=== PATIENT | female | born 1950 | race Caucasian/White ===

== ENCOUNTER 2016-12-27 00:43 | Emergency (ER) | payer OTHER ==
[2016-12-27 01:02] VITALS: BP 145/67; PULSE 75; TEMP 97.9; BMI 30.4
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
[2016-12-27] MEDS ORDERED: ASPIRIN 81 MG CHEWABLE TABLETS PO ONE (01:12)
[2016-12-27] MEDS ORDERED: PANTOPRAZOLE SODIUM 40 MG in SODIUM CHLORIDE 100 ML IVPB ONE (01:12)
[2016-12-27 01:29] LABS: BASOPHIL 0.4 % (0-2.0); EOSINOPHIL 0.4 % (0-4.5); MCH 27.9 pg (25.7-33.7); MCHC 32.4 g/dl (32.0-36.0); MEAN CELL VOLUME 86.2 fl (80-96); MEAN PLT VOLUME 7.8 fl (7.5-11.1); PLATELET COUNT 235 K/MM3 (134-434); RDW 14.4 % (11.6-15.6); WHITE BLOOD COUNT 7.5 K/mm3 (4.0-10.0)
[2016-12-27] MEDS ORDERED: PANTOPRAZOLE SODIUM 100 ML IVPB ONE (01:44)
[2016-12-27] MEDS ORDERED: ASPIRIN 81 MG CHEWABLE TABLETS ONE (01:44)
[2016-12-27 01:45] LABS: INR 1.16 (0.82-1.09); PROTHROMBIN TIME (PATIENT) 12.8 SEC (9.98-11.88)
[2016-12-27 01:50] LABS: ALBUMIN 3.6 g/dl (3.4-5.0); ANION GAP 9 (8-16); BILIRUBIN,TOTAL 0.6 mg/dL (0.2-1.0); CALCIUM 8.7 mg/dL (8.5-10.1); CO2 29 mmol/L (21-32); COCKROFT - GAULT 109.8795; CREATININE 0.7 mg/dL (0.55-1.02); GLUCOSE,RANDOM 115 mg/dL (74-106); MAGNESIUM 2.2 mg/dL (1.8-2.4); SGOT/AST 16 U/L (15-37); SGPT/ALT 24 U/L (12-78); TOT PROT 6.9 g/dl (6.4-8.2)
[2016-12-27 01:53] LABS: ALK PHOS 77 U/L (45-117); TROPONIN I < 0.02 ng/ml (0.00-0.05)
[2016-12-27] MEDS ORDERED: OXYCODONE/APAP 5/325MG COMBO TABLET PO ONE (02:49)
[2016-12-27] MEDS ORDERED: OXYCODONE/APAP 5/325MG COMBO TABLET ONE (03:20)
--- NOTE | 2016-12-27 12:47 | EKG ---
Test Reason : Blood Pressure : / mmHG Vent. Rate : 072 BPM Atrial Rate : 072 BPM P-R Int : 122 ms QRS Dur : 086 ms QT Int : 386 ms P-R-T Axes : 013 044 028 degrees QTc Int : 422 ms NORMAL SINUS RHYTHM NONSPECIFIC ST ABNORMALITY ABNORMAL ECG NO PREVIOUS ECGS AVAILABLE Confirmed by CRISTELA DUNCAN, HE ([id number]) on 12/27/2016 12:47:32 PM Referred By: Confirmed By:HE ARCHIBALD MD
== END 2016-12-27 03:45 | disposition home or self-care (01) ==
LOC: JER 00:43
PROC: 3E033GC Introduction of Other Therapeutic Substance into Peripheral Vein, Percutaneous Approach (ICD-10-PCS; principal; 2016-12-27)
DX: K80.20 Calculus of gallbladder without cholecystitis without obstruction (principal); I10 Essential (primary) hypertension
CPT/HCPCS: 36415; 71010-TC; 76705-TC; 80053; 82550; 83690; 83735; 83880; 84484; 85025; 85379; 85610; 85730; 86850; 86900; 86901; 93005; 93010; 99283-25

== ENCOUNTER 2022-11-29 08:01 | Day surgery (SDC) | payer OTHER ==
[2022-11-23 12:50] VITALS: BMI 30.4
[2022-11-29] MEDS ORDERED: PROPOFOL 120 ML ONE (08:05)
[2022-11-29] MEDS ORDERED: LIDOCAINE HCL/PF 2% SDV 5ML VIAL ONE (08:05)
[2022-11-29 10:03] VITALS: RESP 18; TEMP 98
[2022-11-29 10:05] VITALS: BP 124/74; PULSE 72
== END 2022-11-29 10:11 | disposition home or self-care (01) ==
LOC: FASU-ENDO 08:01
PROVIDERS: ATTEND Internal Medicine Gastroenterology
PROC: 0DBN8ZX Excision of Sigmoid Colon, Via Natural or Artificial Opening Endoscopic, Diagnostic (ICD-10-PCS; principal; 2022-11-29 09:22)
DX: Z12.11 Encounter for screening for malignant neoplasm of colon (principal); Z80.0 Family history of malignant neoplasm of digestive organs; D12.7 Benign neoplasm of rectosigmoid junction; K57.30 Diverticulosis of large intestine without perforation or abscess without bleeding
CPT/HCPCS: 88305-TC